=== PATIENT | male | born 1940 | race Two or more races ===

== ENCOUNTER 2018-09-24 20:48 | Inpatient (IN) | payer MEDICARE, MEDICAID ==
[~2018-09-24] VITALS: Ht 162.6 cm; Wt 85.3 kg
[2018-09-24] MEDS ORDERED: FURO40TA5 PO (22:08)
[2018-09-24] MEDS ORDERED: HYDR25TA4 PO (22:15)
[2018-09-24] MEDS ORDERED: ROSU5TAB PO (22:15)
[2018-09-24] MEDS ORDERED: DILT-32 PO (22:15)
[2018-09-24] MEDS ORDERED: MULT1TAB73 PO (22:15)
[2018-09-24] MEDS ORDERED: ACET-73 PO (22:15)
[2018-09-24 22:27] VITALS: BP 139/102
--- NOTE | 2018-09-24 22:40 | NUR ---
MAINFRAME PROGRAMMER ANALYST NOTES RECEIVED PT FROM EMT. A/O X 4 WITH AT BEDSIDE. AMBULATORY WITH ASSIST. ON NASAL CANNULA 3LPM NO RESPIRATORY DISTRESS NOTED. ON TELE MONITOR SR 80S. IV ACCESS ON LHAND G20 PATENT AND INTACT. NO COMPLAINS OF ABD PAIN OR SHORTNESS OF BREATH. WOUND CHECK DONE, REFUSING TO REMOVE PANTS/ UNDERWEAR. PAGED ONCALL FOR ADMITTING ORDERS. WILL MONITOR PT CLOSELY.
[2018-09-24] MEDS ORDERED: ZOLPIDEM TARTRATE 5 MG TABLET PO PRN (23:00)
[2018-09-24] MEDS ORDERED: MAG HYDROX/AL HYDROX/SIMETH 30 ML UDC PO PRN (23:00)
[2018-09-24] MEDS ORDERED: CLONIDINE HCL 0.1 MG TABLET PO PRN (23:00)
[2018-09-24] MEDS ORDERED: ONDANSETRON HCL/PF 4 MG/2 ML VIAL IVP PRN (23:00)
[2018-09-24] MEDS ORDERED: MORPHINE SULFATE INJ 2 MG/ML DISP.SYRIN IV PRN (23:00)
[2018-09-24] MEDS ORDERED: Z GUARD REMEDY 2 OZ OINT TP PRN (23:00)
[2018-09-24] MEDS ORDERED: ACETAMINOPHEN 325 MG TABLET PO PRN (23:00)
[2018-09-24] MEDS ORDERED: ALBUTEROL FS 2.5 MG/3 ML VIAL.NEB NEB PRN (23:00)
[2018-09-25] VITALS: BP 135/97
[2018-09-25 04:00] VITALS: BP 132/87
[2018-09-25 07:07] LABS: BASOPHILS % (AUTO) 0.3 % (0.0-2.0); EOSINOPHILS % (AUTO) 1.2 % (0.0-6.0); HEMATOCRIT 44 % (39-51); HEMOGLOBIN 14.2 g/dL (13.5-17.5); LYMPHOCYTES # (AUTO) 2.1 /CMM (0.8-4.8); MEAN CORPUSCULAR HGB CONC 33 g/dl (31.0-36.0); MEAN CORPUSCULAR VOLUME 91 fL (80-96); MONOCYTES # (AUTO) 0.7 /CMM (0.1-1.30); MONOCYTES % (AUTO) 8.7 % (2.0-12.0); NEUTROPHILS # (AUTO) 4.9 /CMM (1.8-8.9); NEUTROPHILS % (AUTO) 62.8 % (43.0-81.0); PLATELET COUNT (AUTO) 185 /CMM (150-450); WHITE BLOOD COUNT (AUTO) 7.8 K/uL (4.3-11.0)
--- NOTE | 2018-09-25 07:11 | NUR ---
REFLESHER NOTES NO ACUTE CHANGES NOTED DURING THE SHIFT. PROVIDED COMFORT AND SAFETY. NO RESPIRATORY DISTRESS. ENDORSED TO THE AM NURSE FOR CONTINUITY OF CARE.
[2018-09-25 07:17] LABS: ALANINE AMINOTRANSFERASE 40 U/L (12-78); ALBUMIN 3.3 g/dL (3.4-5.0); ALKALINE PHOSPHATASE 53 U/L (46-116); ASPARTATE AMINOTRANSFERASE 19 U/L (15-37); B-TYPE NATRIURETIC PEPTIDE 6258 PG/ML (0-125); BILIRUBIN,TOTAL 0.6 mg/dL (0.2-1.0); CALCIUM, SERUM 8.7 mg/dL (8.5-10.1); CARBON DIOXIDE 26 mmol/L (21-32); CHLORIDE 107 mmol/L (98-107); CREATININE 1.2 mg/dL (0.6-1.3); GLUCOSE 116 mg/dL (74-106); MAGNESIUM 2.1 mg/dL (1.8-2.4); PHOSPHORUS 4.8 mg/dL (2.5-4.9); POTASSIUM 3.9 mmol/L (3.5-5.1); SODIUM SERUM 142 mmol/L (136-145); TOTAL PROTEIN, SERUM 6.6 g/dL (6.4-8.2); UREA NITROGEN, BLOOD 21 mg/dL (7-18)
[2018-09-25 07:20] LABS: CHOLESTEROL 144 mg/dL (<200); HDL CHOLESTEROL 32 mg/dL (40-60); LDL 104 mg/dL (0-99); THYROID STIMULATING HORMONE 1.134 uIU/mL (0.358-3.74); TRIGLYCERIDES 101 mg/dL (30-150)
--- NOTE | 2018-09-25 07:25 | NUR ---
TELE/RN OPENING NOTES RECEIVED PATIENT IN BED AWAKE, ALERT AND ABLE TO MAKE NEEDS KNOWN. PATIENT IS ALERT AND ORIENTED X4. NO PAIN OR ACUTE DISTRESS AT THIS TIME. RESPIRATION EVEN AND UNLABORED. SKIN IS DRY WARM TO TOUCH. PATIENT ABLE TO AMBULATE WITH ASSIST. CONTINUES ON O2 THERAPY VIA NASAL CANNULA 3LPM WITN NO SOB AT THIS TIME. ON TELE MONITOR SR 80'S. IV ACCESS NOTED ON LHAND G20 PATENT AND INTACT. FLUSHING WELL. ALL NEEDS ANTICIPATED. KEPT CLEAN AND DRY. CALL LIGHT WITHIN REACHED. BED LOCKED AND IN LOWEST POSITION. SAFETY MAINTAINED. PLAN OF CARE DISCUSSED. WILL MONITOR PATIENT CLOSELY.
[2018-09-25 07:39] LABS: IRON, SERUM 49 ug/dl (50-175); TOTAL IRON BINDING CAPACITY 272 ug/dl (250-450)
[2018-09-25] MEDS: PANTOPRAZOLE 40 MG TABLET.DR PO SCH (07:51)
[2018-09-25 08:00] VITALS: BP 114/79
[2018-09-25] MEDS: FUROSEMIDE 20 MG/2 ML VIAL IV SCH (09:11)
[2018-09-25] MEDS: ASPIRIN 81 MG TAB.CHEW PO SCH (09:11)
[2018-09-25] MEDS: MULTIVITAMINS,THERAGRAN 1 UDTAB TABLET PO SCH (09:11)
[2018-09-25] MEDS: DILTIAZEM HCL CD 120 MG PO SCH (09:11)
[2018-09-25 12:00] VITALS: BP 118/85
[2018-09-25] MEDS: ATORVASTATIN 10 MG TABLET PO SCH (13:28)
[2018-09-25] MEDS ORDERED: METOPROLOL TARTRATE INJ 5 MG/5 ML AMPUL IVP PRN (15:00)
[2018-09-25 16:00] VITALS: BP_SYST 123; BP_SYST 125; BP_DIAS 88
--- NOTE | 2018-09-25 17:22 | NUR ---
Met with patient and at bedside. Both speaks Greenlandic only. Patient lives with in [facility]. Prior to admission, he was ambulatory and independent with adl's. Denies having DME or homehealth. He want to return home once discharge. Addendum: 09/25/18 at 1722 by ANKUR HAND RN Amended: Links added.
--- NOTE | 2018-09-25 17:30 | NUR ---
TELE/RN NOTES CALL RADIOLOGY REGARDING THE METOPROLOL ORDER AND ACCORDING TO THEM THEY WILL BE THE ONE ADMINISTERING THE MEDICATION. PATIENT'S CURRENT HR IS 68-70. ALSO AN IV ACCESS ON LEFT HAND WAS STARTED #20G. INTACT AND PATENT. FLUSHING WELL. PATIENT CONTINUES TO REMAIN IS STABLE CONDITION. WILL CONTINUE TO MONITOR.
[2018-09-25] MEDS: METOPROLOL TARTRATE 50 MG TABLET PO SCH (18:00)
[2018-09-25] MEDS ORDERED: CT SWABBABLE VALVE TRANS SET 1 EA INFUS.SET MC ONE ×2 (18:21→19:05)
[2018-09-25] MEDS ORDERED: IOHEXOL-350 100 ML VIAL IV ONE ×2 (18:21→19:04)
--- NOTE | 2018-09-25 18:22 | NUR ---
TELE/RN NOTES MEDICATION METOPROLOL NOT GIVEN DUE TO PATIENT GOING TO RECEIVE A DOSE DURING HIS CT ANGIO. PATIENT WAS PICKED UP BY A NURSE TO GO TO RADIOLOGY. CONSENT WAS ALSO GIVEN TO THE NURSE. PATIENT LEFT THE UNIT IN STABLE CONDITION. AWAITING FOR THE PATIENTS RETURN.
[2018-09-25] MEDS ORDERED: METOPROLOL TARTRATE INJ 5 MG/5 ML AMPUL IVP ONE (18:30)
[2018-09-25] MEDS ORDERED: IV NS 0.9% 500 ML IV ONE (18:30)
[2018-09-25] MEDS ORDERED: NITROGLYCERIN 4.9 GM SPRAY SL ONE (18:30)
[2018-09-25] MEDS ORDERED: METOPROLOL TARTRATE INJ 5 MG/5 ML AMPUL ONE (18:37)
[2018-09-25] MEDS ORDERED: NITROGLYCERIN 0.4 MG/TAB BOTTLE ONE (18:37)
[2018-09-25] MEDS ORDERED: IV NS 0.9% 250 ML IV ONE (19:05)
--- NOTE | 2018-09-25 19:10 | NUR ---
RN/CTA 1810. RECEIVED REPORT FROM MARCO. PT IS AAOX4, NOT IN RESPIRATORY DISTRESS, V/S STABLE, CTA CONSENT VERIFIED. IV LINE ESTABLISHED LAC G20. TRANSPORTED TO CT VIA ACLS PROTOCOL.
--- NOTE | 2018-09-25 19:15 | NUR ---
TELE/RN CLOSING NOTES PATIENT IS STILL IN RADIOLOGY FOR HIS PROCEDURE. STILL AWAITING FOR THE RETURN OF THE PATIENT. ENDORSED TO PM NURSE FOR BENNETT.
--- NOTE | 2018-09-25 19:46 | NUR ---
RN NOTES RETURN FROM RADIOLOGY AT 1930, NOTED WITH DIFFICULTY OF BREATHING WITH O2SAT OF 94% AT 5L O2 VIA NASAL CANNULA. PATIENT WAS DIAPHORETIC AND COMPLAINED OF DIZZINESS. HEAD OF BED ELEVATED, VITAL TAKEN 104/73 HR 59, 98.4. CT ANGIO WAS UNSUCCESSFUL. CALLED MD, SPOKE WITH DR MENDOZA AND RELAYED THE OUTCOME. SAID "THERE IS NOTHING WE CAN DO, I WILL SEE HIM TOMORROW AND THEN DECIDE IF WE WILL GO ON WITH CT ANGIO."
--- NOTE | 2018-09-25 19:57 | NUR ---
CT ANGIO UNSUCCESSFUL. PT IV INFILTRATED AND STOPPED CONTRAST AT 50CC. UNABLE TO CONTINUE WITH EXAM DUE TO PT CONDITION OF DIZZINESS AND DIFFICULTY BREATHING. NURSING COLLECTION SYSTEMS TECHNICIAN ANN MARIE IS AWARE
[2018-09-25 20:00] VITALS: BP 104/73
[2018-09-26] VITALS: BP_SYST 103; BP_SYST 122; BP_DIAS 72; BP_DIAS 89
[2018-09-26] MEDS: METOPROLOL TARTRATE 50 MG TABLET PO SCH ×4 (00:21→17:47)
[2018-09-26 04:00] VITALS: BP 103/72
--- NOTE | 2018-09-26 06:26 | NUR ---
rn notes no further episode of shortness of breath or dizziness. patient in bed sleeping. no distress noted. breathing even and unlabored. needs attended. kept clean and dry. will endorse to next shift for continuity of care.
[2018-09-26 06:38] LABS: BASOPHILS % (AUTO) 0.6 % (0.0-2.0); EOSINOPHILS % (AUTO) 2.4 % (0.0-6.0); HEMATOCRIT 41 % (39-51); HEMOGLOBIN 13.6 g/dL (13.5-17.5); LYMPHOCYTES % (AUTO) 27.4 % (20.0-44.0); MEAN CORPUSCULAR HGB CONC 33 g/dl (31.0-36.0); MEAN CORPUSCULAR VOLUME 91 fL (80-96); MONOCYTES # (AUTO) 0.6 /CMM (0.1-1.30); MONOCYTES % (AUTO) 8.5 % (2.0-12.0); NEUTROPHILS # (AUTO) 4.5 /CMM (1.8-8.9); NEUTROPHILS % (AUTO) 61.1 % (43.0-81.0); PLATELET COUNT (AUTO) 172 /CMM (150-450); RED BLOOD CELL COUNT(AUTO) 4.52 MIL/uL (4.5-6.0); WHITE BLOOD COUNT (AUTO) 7.3 K/uL (4.3-11.0)
[2018-09-26 07:02] LABS: ALANINE AMINOTRANSFERASE 38 U/L (12-78); ALBUMIN 3.3 g/dL (3.4-5.0); ALKALINE PHOSPHATASE 49 U/L (46-116); ASPARTATE AMINOTRANSFERASE 19 U/L (15-37); BILIRUBIN,TOTAL 0.5 mg/dL (0.2-1.0); CALCIUM, SERUM 8.4 mg/dL (8.5-10.1); CARBON DIOXIDE 27 mmol/L (21-32); CHLORIDE 103 mmol/L (98-107); CREATININE 1.3 mg/dL (0.6-1.3); GLUCOSE 106 mg/dL (74-106); MAGNESIUM 2.1 mg/dL (1.8-2.4); PHOSPHORUS 5.2 mg/dL (2.5-4.9); SODIUM SERUM 139 mmol/L (136-145); TOTAL PROTEIN, SERUM 6.5 g/dL (6.4-8.2); UREA NITROGEN, BLOOD 28 mg/dL (7-18)
--- NOTE | 2018-09-26 07:15 | NUR ---
RN INITIAL NOTES PATIENT IN BED, ASLEEP BUT EASILY AROUSABLE TO NAME. PATIENT ALERT AND ORIENTED X3. ON TELE MONITOR, SR. AMBULATORY WITH ASSIST. HAS A MIDLINE ORDER PENDING. HAS A LEFT HAND SALINE LOCKED. CT ANGIO WAS UNSUCCESSFUL LAST NIGHT DUE TO PATIENT WAS DIAPHORETIC AND WAS HAVING SOB + DIZZINESS. DR MENDOZA MADE AWARE AND WILL ASSESS PT TODAY IN THE MORNING. NO COMPLAINS OF ANY SOB NOR PAIN AT THIS TIME. BED LOCKED AND IN LOWEST POSITION. CALL LIGHT WITHIN REACH. WILL CONTINUE TO MONITOR
[2018-09-26 08:00] VITALS: BP_SYST 115; BP_SYST 150; BP_DIAS 70; BP_DIAS 71
[2018-09-26] MEDS: ASPIRIN 81 MG TAB.CHEW PO SCH (08:21)
[2018-09-26] MEDS: MULTIVITAMINS,THERAGRAN 1 UDTAB TABLET PO SCH (08:21)
[2018-09-26] MEDS: FUROSEMIDE 20 MG/2 ML VIAL IV SCH (08:21)
[2018-09-26] MEDS: PANTOPRAZOLE 40 MG TABLET.DR PO SCH (08:21)
[2018-09-26] MEDS: DILTIAZEM HCL CD 120 MG PO SCH (08:21)
[2018-09-26] MEDS: ATORVASTATIN 10 MG TABLET PO SCH (08:22)
--- NOTE | 2018-09-26 11:02 | NUR ---
RN NOTES PER DR MENDOZA. CHECK O2 ON ROOM AIR, IF >92%, CAN DC THE O2. AT PATIENT'S BEDSIDE, AT 5L, PATIENT'S O2 SAT IS AT 96%. ON 2L NC, O2 SAT AT 94%. ON ROOM AIR AT THIS TIME, O2 SAT AT 93%. WILL CONTINUE TO MONITOR PATIENT ON ROOM AIR.
--- NOTE | 2018-09-26 11:25 | NUR ---
RN NOTES PATIENT'S O2 SAT AT ROOM AIR IS DROPPING AT 84% AT LOWEST. PUT BACK ON TO 2L NC, NOW AT 96%
[2018-09-26 13:35] LABS: ABG BASE EXCESS -3.6 mmol/L; ABG OXYGEN SATURATION 96.6 % (92.0-98.5); ABG PCO2 42.6 mmHg (35.0-45.0); ABG PH 7.334 (7.350-7.450); ABG PO2 97.3 mmHg (75.0-100.0); AaDO2 52.1 mmHg; COHb 0.8 % (0.5-1.5); MetHb 0.4 % (0.0-1.5); O2Hb 95.4 % (94.0-97.0); SITE, ABG Right Radial
[2018-09-26] MEDS ORDERED: ACETYLCYSTEINE 10% 3,000 MG/30 ML VIAL PO ONE (13:45)
[2018-09-26] MEDS ORDERED: IOHEXOL-350 100 ML VIAL IV ONE (15:21)
[2018-09-26 16:00] VITALS: BP 127/82
--- NOTE | 2018-09-26 16:30 | NUR ---
RN NOTES PATIENT WAS PICKED UP BY PLOW SHAKER TO DO A CT ANGIO PULMO. PATIENT LEFT VIA WHEELCHAIR, WITH O2 AT 2L. PATIENT STABLE, CONSENT HAS BEEN SIGNED IN CHART
--- NOTE | 2018-09-26 16:45 | NUR ---
RN NOTES PATIENT CAME BACK FROM CT PULMO ANGIO, STABLE
--- NOTE | 2018-09-26 18:57 | NUR ---
RN CLOSING NOTES PATIENT SITTING AT THE EDGE OF HIS BED. AWAKE AND ALERT. ON 2L NC, SATING WELL >92%. NO COMPLAINS OF ANY PAIN NOR SOB. PATIENT IS AMBULATORY WITH STEADY GAIT. HAS A LEFT BASILIC PICC LINE #[address] PULMO ANGIO WAS DONE TODAY TO RULE OUT PE. FAMILY WAS AT BEDSIDE EARLIER TODAY. BED IN LOWEST POSITION. CALL LIGHT WITHIN REACH. WILL ENDORSE TO NOC SHIFT FOR BENNETT
[2018-09-26] MEDS ORDERED: ACETYLCYSTEINE 10% 3,000 MG/30 ML VIAL PO SCH (21:00)
[2018-09-27] MEDS: METOPROLOL TARTRATE 50 MG TABLET PO SCH ×5 (00:54→23:57)
[2018-09-27 04:00] VITALS: BP 128/88
--- NOTE | 2018-09-27 07:15 | NUR ---
MS RN OPENING NOTES RECEIVED PT SITTING ON THE EDGE OF BED,ALERT/ORIENTED X4.ON NC 2 L O2 CONTINUOUSLY,SATURATING WELL.NO SOB AND ACUTE DISTRESS NOTED.PICC LINE SI ON LEFT UA,SITE SI CLEAN,DRY AND INTACT.NO INFILTRATION NOTED.BED IS IN LOW POSITION AND LOCKED.CALL LIGHT IS WITHIN REACH.WILL CONTINUE TO MONITOR THE PT CLOSELY.
[2018-09-27 07:21] LABS: BASOPHILS % (AUTO) 0.5 % (0.0-2.0); EOSINOPHILS % (AUTO) 2.4 % (0.0-6.0); HEMATOCRIT 44 % (39-51); HEMOGLOBIN 14.2 g/dL (13.5-17.5); LYMPHOCYTES % (AUTO) 26.6 % (20.0-44.0); MEAN CORPUSCULAR HGB CONC 33 g/dl (31.0-36.0); MEAN CORPUSCULAR VOLUME 91 fL (80-96); MONOCYTES # (AUTO) 0.6 /CMM (0.1-1.30); MONOCYTES % (AUTO) 8.5 % (2.0-12.0); NEUTROPHILS # (AUTO) 4.6 /CMM (1.8-8.9); PLATELET COUNT (AUTO) 179 /CMM (150-450); RED BLOOD CELL COUNT(AUTO) 4.81 MIL/uL (4.5-6.0); WHITE BLOOD COUNT (AUTO) 7.5 K/uL (4.3-11.0)
[2018-09-27 07:36] LABS: CALCIUM, SERUM 8.6 mg/dL (8.5-10.1); CARBON DIOXIDE 25 mmol/L (21-32); CHLORIDE 102 mmol/L (98-107); CREATININE 1.3 mg/dL (0.6-1.3); GLUCOSE 102 mg/dL (74-106); POTASSIUM 4.3 mmol/L (3.5-5.1); SODIUM SERUM 138 mmol/L (136-145); UREA NITROGEN, BLOOD 30 mg/dL (7-18)
[2018-09-27 08:00] VITALS: BP 123/84
[2018-09-27] MEDS: ATORVASTATIN 10 MG TABLET PO SCH (08:57)
[2018-09-27] MEDS: MULTIVITAMINS,THERAGRAN 1 UDTAB TABLET PO SCH (08:57)
[2018-09-27] MEDS: ASPIRIN 81 MG TAB.CHEW PO SCH (08:57)
[2018-09-27] MEDS: DILTIAZEM HCL CD 120 MG PO SCH (08:57)
[2018-09-27] MEDS: PANTOPRAZOLE 40 MG TABLET.DR PO SCH (08:59)
--- NOTE | 2018-09-27 13:00 | NUR ---
MS RN NOTES PT REFUSED TO DO CT ANGIO,EXPLAINED THE RISK AND BENEFITS X3,STILL REFUSED.WILL FOLLOW UP LATER.
[2018-09-27 16:00] VITALS: BP 129/83
--- NOTE | 2018-09-27 18:00 | NUR ---
MS RN NOTES SAID TO RT ELVIS TO ADMINISTER MUCOMYST PO INHALATION,MADE AWARE AND SAID WILL CHECK IT.
[2018-09-27] MEDS ORDERED: IOHEXOL-350 100 ML VIAL IV ONE (18:29)
[2018-09-27] MEDS ORDERED: CT SWABBABLE VALVE TRANS SET 1 EA INFUS.SET MC ONE (18:33)
[2018-09-27] MEDS ORDERED: IV NS 0.9% 250 ML IV ONE (18:33)
--- NOTE | 2018-09-27 18:52 | NUR ---
MS RN CLOSING NOTES PT IS LYING ON BED,ALERT/ORIENTED X4.WITH 2 L O2 VIA NC CONTINUOUSLY,NO SOB AND ACUTE DISTRESS NOTED.ALL DUE MEDS ARE GIVEN.SCHEDULED FOR CT ANGIOGRAM LATER TODAY.RESPIRATION IS EVEN AND NONLABORED.ENDORSED TO SIZER MACHINE RN FOR BENNETT AND TO FOLLOW CT ANGIOGRAM TODAY.
--- NOTE | 2018-09-27 19:30 | NUR ---
RN NOTES, REPORT GIVEN BY DAY SHIFT NURSE THAT PATIENT WAS TAKEN TO CT ANGIO, WILL CONTINUE TO PROVIDING CARE ONCE PATIENT COME BACK.
[2018-09-27 20:00] VITALS: BP 107/77
--- NOTE | 2018-09-27 20:15 | NUR ---
RN NOTES, PATIENT ARRIVED FROM RADIOLOGY VIA W/C IN COMPANY OF STAFF IN STABLE CONDITION, A/O X4 ABLE TO VERBALIZED NEEDS, NO SOB/ACUTE DISTRESS NOTED, ON 2LPM VIA NC, JACQUE PICC LINE IN PLACED PATENT AND INTACT, A WILL CONTINUE TO MONITOR CLOSELY.
[2018-09-28 04:00] VITALS: BP 92/55
[2018-09-28] MEDS: METOPROLOL TARTRATE 50 MG TABLET PO SCH (06:00)
--- NOTE | 2018-09-28 06:44 | NUR ---
RN NOTES, PATIENT SLEEPING AT THIS TIME, NO CHANGE IN CONDITION DURING THE NIGHT, WILL ENDORSE CONTINUITY OF CARE TO ONCOMING NURSE, CT ANGIO RESULTS STILL. PENDING.
[2018-09-28 08:00] VITALS: BP 94/64
[2018-09-28] MEDS: MULTIVITAMINS,THERAGRAN 1 UDTAB TABLET PO SCH (08:12)
[2018-09-28] MEDS: ASPIRIN 81 MG TAB.CHEW PO SCH (08:13)
[2018-09-28] MEDS: ATORVASTATIN 10 MG TABLET PO SCH (08:13)
[2018-09-28] MEDS: PANTOPRAZOLE 40 MG TABLET.DR PO SCH (08:13)
[2018-09-28] MEDS: DILTIAZEM HCL CD 120 MG PO SCH (08:13)
[2018-09-28 16:00] VITALS: BP 119/85
[2018-09-28] MEDS ORDERED: METOPROLOL TARTRATE 50 MG TABLET PO SCH (17:00)
--- NOTE | 2018-09-28 18:59 | NUR ---
PATIENT REPORTS DIZZINESS WHEN WALKING, SOB WHEN LAYING DOWN. SPO2 80% ON ROOM AIR. MD AWARE. ORTHOSTATIC BP CHECKED, SEE VITALS. PATIENT WENT FOR CT HEAD TODAY.
--- NOTE | 2018-09-28 19:40 | NUR ---
RN NOTES, PATIENT SITTING AT THE EDGE OF HIS BED PLAYING WITH HIS CELL PHONE, AWAKE AND ALERT/ORIENTED X4, 2L NC, WITH OPTIMAL O2SAT LEVEL, NO SOB/RESPIRATORY DISTRESS NOTED AT THIS TIME, JACQUE PICC LINE SALINE LOCKED PATENT AND INTACT, . BED IN LOWEST POSITION, CALL LIGHT WITHIN REACH, WILL CONTINUE TO MONITOR CLOSELY.
[2018-09-28 20:00] VITALS: BP 128/77
[2018-09-29 04:00] VITALS: BP 130/79
--- NOTE | 2018-09-29 06:40 | NUR ---
RN NOTES, PATIENT SLEEPING AT THIS TIME,NO SOB/ACUTE DISTRESS NOTED, NO SIGNIFICANT CHANGE IN CONDITION DURING THE NIGHT, WILL ENDORSE CONTINUITY OF CARE TO ONCOMING NURSE.
[2018-09-29] MEDS: PANTOPRAZOLE 40 MG TABLET.DR PO SCH (07:49)
[2018-09-29 08:00] VITALS: BP 133/88
[2018-09-29 08:18] VITALS: BP 133/88
[2018-09-29] MEDS: MULTIVITAMINS,THERAGRAN 1 UDTAB TABLET PO SCH (08:19)
[2018-09-29] MEDS: ATORVASTATIN 10 MG TABLET PO SCH (08:20)
[2018-09-29] MEDS: ASPIRIN 81 MG TAB.CHEW PO SCH (08:20)
[2018-09-29] MEDS ORDERED: DILTIAZEM HCL CD 240 MG PO SCH (09:00)
[2018-09-29 09:32] LABS: ABG BASE EXCESS 0.5 mmol/L; ABG OXYGEN SATURATION 90.5 % (92.0-98.5); ABG PCO2 46.6 mmHg (35.0-45.0); ABG PH 7.369 (7.350-7.450); ABG PO2 61.6 mmHg (75.0-100.0); AaDO2 32.3 mmHg; COHb 0.9 % (0.5-1.5); MetHb 0.5 % (0.0-1.5); O2Hb 89.2 % (94.0-97.0); SITE, ABG Right Radial; VENT MODE, BG room air
--- NOTE | 2018-09-29 10:36 | NUR ---
D/C ORDER RECEIVED. PER DR. EVERETT, 2L O2 AT HOME AND FOLLOW UP IN 2 WEEKS
--- NOTE | 2018-09-29 11:14 | NUR ---
PATIENT SPO2 86% ON ROOM AIR AT REST. SLIGHT INCREASE IN WORK OF BREATHING WITNESSED. ABGS TAKEN, DR. EVERETT NOTIFIED, RECEIVED ORDER FOR HOME OXYGEN 2L VIA NASAL CANNULA
--- NOTE | 2018-09-29 12:15 | NUR ---
RN D/C NOTE RECEIVED D/C ORDER. NO NEW PRESCRIPTIONS. PATIENT INSTRUCTED TO FOLLOW UP WITH PCP AND DR. EVERETT IN TWO WEEKS, OFFICE NUMBER PROVIDED. PICC LINE REMOVED, CATHETER INTACT, PRESSURE APPLIED, NO BLEEDING. BP 144/90, SPO2 91% ON ROOM AIR. PATIENT REFUSES TO WAIT UNTIL DELIVERY OF PORTABLE OXYGEN AND WANTS TO GO HOME NOW. ORDERS FOR 2L O2 VIA NASAL CANNULA AT HOME, TO BE DELIVERED PER DIVE SUPERINTENDENT. EDUCATED PATIENT ON IMPORTANCE OF FOLLOW UP, CONTINUING MEDICATION/O2 AND EMERGENCY SYMPTOMS. PATIENT WHEELED OUT OF UNIT WITH FRIEND WHO WILL DRIVE PATIENT HOME.
== END 2018-09-29 12:55 | disposition home or self-care (01) | DRG 280 ==
LOC: TELE1 21:23 → MEDSG1 09-26 11:24
PROVIDERS: ADMIT Internal Medicine; ATTEND Internal Medicine
PROC: 05HC33Z Insertion of Infusion Device into Left Basilic Vein, Percutaneous Approach (ICD-10-PCS; principal; 2018-09-26)
DX: I11.0 Hypertensive heart disease with heart failure (principal); N17.0 Acute kidney failure with tubular necrosis; I21.A1 Myocardial infarction type 2; J96.01 Acute respiratory failure with hypoxia; J90 Pleural effusion, not elsewhere classified; I16.0 Hypertensive urgency; I50.33 Acute on chronic diastolic (congestive) heart failure; K21.9 Gastro-esophageal reflux disease without esophagitis; E11.9 Type 2 diabetes mellitus without complications; E66.9 Obesity, unspecified; Z68.30 Body mass index [BMI] 30.0-30.9, adult; K40.20 Bilateral inguinal hernia, without obstruction or gangrene, not specified as recurrent; Z91.19 Patient's noncompliance with other medical treatment and regimen; Z91.14 Patient's other noncompliance with medication regimen; I25.10 Atherosclerotic heart disease of native coronary artery without angina pectoris; E88.09 Other disorders of plasma-protein metabolism, not elsewhere classified; G89.29 Other chronic pain; I34.0 Nonrheumatic mitral (valve) insufficiency; I27.20 Pulmonary hypertension, unspecified
CPT/HCPCS: 36415; 36600; 70450-TC; 71045-TC; 75574; 80048-TC; 80053-TC; 80061-TC; 82803-TC; 83540-TC; 83735-TC; 83880; 84100-TC; 84443-TC; 84484-TC; 85025-TC; 85610-TC; 87081-TC; 93307-TC; 97116-TC; 97530-TC; A6402; G0378; J1940; J3490; J7050; Q9967

== ENCOUNTER 2021-08-22 01:01 | Emergency (ER) | payer MEDICARE, OTHER ==
[~2021-08-22] VITALS: Ht 160 cm; Wt 97.1 kg
[~2021-08-22 01:01] MED LIST: DILT-32 PO; FURO40TA5 PO; HYDR25TA4 PO; MULT-754 PO; ROSU5TAB PO
--- NOTE | 2021-08-22 01:45 | NUR ---
TO ER BED 1. BIBS C/O LOWER ABDOMINAL PAIN AND CONSTIPATION SINCE LAST NIGHT. PT DID NOT TAKE ANY OTC MEDS TO RELIEVE SYMPTOMS. CHANGED INTO GOWN. CONNECTED TO MONITOR. AWAITING MD GALAVIZ
--- NOTE | 2021-08-22 02:21 | NUR ---
PT TAKEN FOR CT SCAN
[2021-08-22] MEDS ORDERED: NA PHOS,M-B/NA PHOS,DI-BA 1 EA ENEMA RC ONE ×2 (03:00)
--- NOTE | 2021-08-22 04:21 | NUR ---
CALLED [facility] FOR CT READ
[2021-08-22 04:37] VITALS: BP 146/65
== END 2021-08-22 04:38 | disposition left against medical advice (07) ==
LOC: ER 01:02
DX: K59.00 Constipation, unspecified (principal); I10 Essential (primary) hypertension; Z79.899 Other long term (current) drug therapy